=== PATIENT | female | born 1940 | race Caucasian/White ===

== ENCOUNTER → 2021-08-29 13:15 | Outpatient (BNVA) | payer MEDICARE, SELFPAY | PROVIDERS: PCP Physician Assistant Medical; Visit Provider Hospitalist | DX: I27.20 Pulmonary hypertension, unspecified (principal); J96.12 Chronic respiratory failure with hypercapnia; J96.11 Chronic respiratory failure with hypoxia; J98.4 Other disorders of lung; M79.89 Other specified soft tissue disorders; M41.9 Scoliosis, unspecified | CPT/HCPCS: 94618; 99202 ==

== ENCOUNTER 2021-09-24 09:48 | Outpatient (REF) | payer MEDICARE, SELFPAY ==
--- NOTE | 2021-09-24 | PFT_ITS ---
INDICATION: COPD. SPIROMETRY: FEV1 to FVC 79% with an FEV1 of 0.67 L, which is 47% of predicted, an FVC of 0.85 L, which is 44% of predicted. The maximum voluntary ventilation 31% predicted. LUNG VOLUMES: Total lung capacity 56% predicted. Expiratory reserve volume of 39% predicted. DIFFUSION CAPACITY: DLCO of 44% predicted. POST-TEST COMMENTS: The patient had an excellent effort, although she was unable to meet ATS standards for the DLCO maneuver. Therefore, need to consider. COMPARISONS: None. INTERPRETATION: No obstructive ventilatory defect. No significant response to bronchodilators noted. Actually, most of her measurements decrease during the post bronchodilator effort. The maximal voluntary ventilation is severely decreased at 31%. Therefore, need to consider underlying neuromuscular conditions or significant deconditioning. Her lung volumes demonstrated a restrictive ventilatory defect with a moderate restrictive lung disease. Again, interstitial lung conditions versus neuromuscular conditions should be considered. The patient also has a severe diffusion impairment that does correct to normal to 84% when correcting for the alveolar volume. Clinical correlation warranted. MD RUBY Gonzalez/MODAmrita / [id number]
== END 2021-09-24 09:49 | disposition home or self-care (01) ==
LOC: HO.RESP 09:48
PROVIDERS: Visit Provider Hospitalist
DX: J44.9 Chronic obstructive pulmonary disease, unspecified (principal)
CPT/HCPCS: 94060; 94727; 94729

== ENCOUNTER → 2021-09-27 14:08 | Outpatient (BNVA) | payer MEDICARE, SELFPAY | PROVIDERS: PCP Physician Assistant Medical; Visit Provider Hospitalist | DX: J96.11 Chronic respiratory failure with hypoxia (principal); J96.12 Chronic respiratory failure with hypercapnia; J98.4 Other disorders of lung; I27.20 Pulmonary hypertension, unspecified; M79.89 Other specified soft tissue disorders; M41.9 Scoliosis, unspecified | CPT/HCPCS: 99212 ==

== ENCOUNTER 2021-10-03 09:40 | Outpatient (REF) | payer MEDICARE, SELFPAY ==
[2021-10-03 11:30] LABS: D Dimer High Sensitivity 447 NG/ML
[2021-10-03 11:41] LABS: Anion Gap 11 (12-20); Blood Urea Nitrogen 20 mg/dL (9-16); Calcium 9.8 mg/dL (8.4-10.2); Carbon Dioxide 31 mmol/L (22-29); Chloride 101 mmol/L (96-108); Estimated Glomerular Filt Rate > 60; Glucose Random 97 mg/dL (60-115); Potassium 4.3 mmol/L (3.3-5.1); Sodium 139 mmol/L (135-145)
[2021-10-03 12:11] LABS: Erythrocyte Sedimentation Rate 5 MM/HR (0-20)
[2021-10-07 14:22] LABS: Anti Nuclear Antibody Screen NEGATIVE (NEGATIVE)
== END 2021-10-03 09:41 | disposition home or self-care (01) ==
LOC: HO.HMGCLDS 09:40
PROVIDERS: Visit Provider Hospitalist
DX: I27.20 Pulmonary hypertension, unspecified (principal)
CPT/HCPCS: 36415; 80048; 85379; 85652; 86038; 86039

== ENCOUNTER 2021-10-07 08:39 | Outpatient (REF) | payer MEDICARE, SELFPAY ==
--- NOTE | ~2021-10-07 | CT_ITS ---
EXAMINATION: CT ANGIOGRAM OF THE CHEST WITH AND WITHOUT CONTRAST (CT PULMONARY ANGIOGRAM FOR PE) CLINICAL INFORMATION: R79.89 - Other specified abnormal findings of blood chemistry. COMPARISON: None. TECHNIQUE: Prior to contrast administration, noncontrast localization images were obtained. Subsequently, multidetector volumetric imaging was performed from the thoracic inlet to below the diaphragms following the administration of 65 mL Omnipaque 350 intravenous contrast. No contrast reaction reported Sagittal, coronal, and MIP oblique sagittal reformatted images were obtained on the CT workstation, uploaded to PACS, and reviewed. This CT examination was performed using dose optimization techniques as appropriate, variously including the following: *Automated exposure control *Adjustment of mA and/or kV according to patient size (this includes techniques or standardized protocols for targeted exams where dose is matched to indication/reason for exam; i.e. extremities or head) *Use of iterative reconstruction technique Total exam dose-length product 94 mGy-cm. FINDINGS: QUALITY OF STUDY/CONTRAST BOLUS: Satisfactory. PULMONARY ARTERIES: No central or segmental pulmonary emboli. THORACIC AORTA: There is aneurysmal dilatation of ascending aorta measuring 4.5 x 4.4 cm on axial image 36/7. The heart size is normal. There is normal. There is no pericardial effusion. LUNG: No focal consolidation, nodules or masses. PLEURA: No pleural effusion or pneumothorax. MEDIASTINUM: The thyroid lobes are symmetrical and normal. The central trachea and the bronchi are widely patent. There is no pericardial effusion. The heart size is normal. No abnormal-sized mediastinal or hilar lymph nodes seen. No evidence of septal bowing or right heart strain. CHEST WALL/AXILLA: No axillary or internal mammary lymphadenopathy. OSSEOUS STRUCTURES: There is moderate dextroscoliosis of dorsal spine without any visible fracture or lytic process seen. UPPER ABDOMEN: Visualized liver, spleen, pancreas and bilateral adrenal glands are unremarkable. No reflux of contrast into the hepatic veins to suggest elevated right heart pressures. CT/CT angio chest PE protocol IMPRESSION: No evidence of PE. No evidence of aortic dissection. There is aneurysmal dilatation of ascending thoracic aorta. There is no gross lung abnormality seen seen except for minimal left basilar dependent atelectasis. VTE: negative
[2021-10-07] MEDS: iohexoL 350 MG/ML 100 ML INFUS..BTL IV (10:10)
== END 2021-10-07 08:40 | disposition home or self-care (01) ==
LOC: HO.CT 08:39
PROVIDERS: Visit Provider Hospitalist
DX: I27.20 Pulmonary hypertension, unspecified (principal); J96.11 Chronic respiratory failure with hypoxia; R79.89 Other specified abnormal findings of blood chemistry
CPT/HCPCS: 71275; Q9967

== ENCOUNTER → 2022-03-25 15:39 | Outpatient (BNVA) | payer MEDICARE, SELFPAY | PROVIDERS: PCP Physician Assistant Medical; Visit Provider Hospitalist | DX: J98.4 Other disorders of lung (principal); M41.9 Scoliosis, unspecified; I27.20 Pulmonary hypertension, unspecified; M79.89 Other specified soft tissue disorders; J96.11 Chronic respiratory failure with hypoxia; J96.12 Chronic respiratory failure with hypercapnia | CPT/HCPCS: 99212 ==

== ENCOUNTER 2022-06-30 10:42 | Emergency (ER) | payer MEDICARE, SELFPAY ==
--- NOTE | ~2022-06-30 | XR_ITS ---
EXAMINATION: XR CHEST CLINICAL INFORMATION: Shortness of breath COMPARISON: CT 10/07/2021 TECHNIQUE: Frontal view of the chest was obtained. FINDINGS: Scoliotic curvature of the spine. This distorts the configuration of the chest, similar to prior. The lungs are well expanded. No consolidation, edema, or effusion. No pneumothorax. The cardiomediastinal silhouette is unchanged. XR/XR chest 1V IMPRESSION: No acute pulmonary disease. Scoliotic curvature of the spine.
[2022-06-30 10:52] VITALS: BP 154/79; PULSE 57; RESP 16; TEMP 36.4; O2SAT 93; BMI 24.2
--- NOTE | 2022-06-30 10:58 | ECG_ITS ---
Test Reason : wheezing Blood Pressure : / mmHG Vent. Rate : 056 BPM Atrial Rate : 056 BPM P-R Int : 214 ms QRS Dur : 100 ms QT Int : 448 ms P-R-T Axes : 066 -01 057 degrees QTc Int : 432 ms Sinus bradycardia with 1st degree A-V block and PACs Possible Left atrial enlargement Left ventricular hypertrophy ( R in aVL , He product ) Abnormal ECG No previous ECGs available Referred By: Generic ED Physician Electronically Signed By:Nik Charlton
[2022-06-30 11:16] LABS: MANUAL DIFF FLAG NO
[2022-06-30 11:22] LABS: Basophils Percent Auto 0.2 % (0-2); Eosinophils Percent Auto 0.2 % (0-4); Hematocrit 41.9 % (37.0-47.0); Hemoglobin 13.6 g/dl (12.0-16.0); Imm Gran Abs Auto 0.01 X10*3/uL (0.00-0.03); Imm Gran Pct Auto 0.2 % (0.0-0.4); Lymphocytes Absolute Auto 0.8 X10*3/uL (1.2-4.9); Lymphocytes Percent Auto 14.1 % (20-40); Mean Corpuscular HGB Conc 32.5 g/dl (31.0-35.0); Mean Corpuscular Hemoglobin 31.1 pg (27.0-33.0); Mean Corpuscular Volume 95.7 fL (80.0-98.0); Mean Platelet Volume 10.3 fL (9.4-12.3); Monocytes Absolute Auto 0.4 X10*3/uL (0.1-1.2); Neutrophils Absolute Auto 4.2 x10*3/uL (2.0-8.3); Neutrophils Percent Auto 78.3 % (45-73); Platelet Count 164 X10*3/uL (160-400); Red Blood Count 4.38 X10*6/uL (4.20-5.50); Red Cell Distribution Width 14.6 % (11.0-16.0); White Blood Count 5.3 X10*3/uL (4.8-10.8)
[2022-06-30 11:32] LABS: Anion Gap 13 (12-20); Blood Urea Nitrogen 22 mg/dL (9-16); Carbon Dioxide 31 mmol/L (22-29); Chloride 99 mmol/L (96-108); Creatinine Clr Calc Pharmacy 45.1; Estimated Glomerular Filt Rate > 60; Glucose Random 93 mg/dL (60-115); Potassium 4.3 mmol/L (3.3-5.1); Sodium 139 mmol/L (135-145)
[2022-06-30 11:41] LABS: Troponin-I High Sensitivity < 3.5 ng/L (<3.5-17.0)
[2022-06-30 11:58] LABS: Influenza A PCR NEGATIVE (Negative); Influenza B PCR NEGATIVE (Negative); Resp Syncy Virus RNA Qual PCR NEGATIVE (Negative); SARS COV2 PCR INHOUSE NEGATIVE (Negative)
[2022-06-30 12:44] LABS: Alanine Aminotransferase 57 U/L (0-31); Albumin Level 4.1 g/dL (3.5-5.0); Alkaline Phosphatase 69 U/L (39-117); Aspartate Amino Transferase 47 U/L (5-31); Bilirubin Direct 0.2 mg/dL (0.0-0.5); Bilirubin Total 0.9 mg/dL (0.0-1.0); Magnesium 1.9 mg/dL (1.6-2.6); Total Protein 6.9 g/dL (6.5-8.0)
[2022-06-30 12:58] LABS: B Type Natriuretic Peptide 67 pg/mL (<100)
--- NOTE | 2022-06-30 13:41 | PC.NURSE ---
Pt. 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
[2022-06-30 13:42] VITALS: BP 149/76; PULSE 51; RESP 16; O2SAT 96
--- NOTE | 2022-06-30 14:08 | ED_ITS ---
HPI - General Adult General Chief complaint: Dyspnea Stated complaint: wheezing, chills, Time Seen by Provider: 06/30/22 13:36 Source: patient Mode of arrival: ambulatory Limitations: no limitations History of Present Illness HPI narrative: 82-year-old female with history of dementia on Aricept presents with sensations of shortness of breath, wheezing, nausea, dyspepsia. Symptoms started about 2-3 days ago. They started with a sensation of at subjective fever but her temperature at home was normal. The next day she developed chills but no rigors. Since then, her appetite has been slightly diminished. She has had some slight nausea but no vomiting. She also reports loose stools. She denies any chest pain or abdominal pain. She denies any cough or mucus production. There is no urinary frequency, urgency or dysuria. She has no known sick contacts. Also of note, patient has had increasing nighttime hallucinations and difficulty sleeping. She has been attempting to get into a neurologist to adj ust her medications but has been unable to do so. Related Data Home Medications Medication Instructions Recorded Confirmed albuterol sulfate 90 mcg/actuation 2 inh PO Q4H 08/29/21 breath activated powder inhaler (ProAir RespiClick) aspirin 81 mg tablet,delayed 81 mg PO DAILY 08/29/21 release cholecalciferol (vitamin D3) 25 25 mcg PO DAILY 08/29/21 mcg (1,000 unit) capsule donepezil 10 mg tablet 10 mg PO BEDTIME 08/29/21 fexofenadine 60 mg tablet (Amber 60 mg PO Q12H 08/29/21 Allergy) fluticasone propionate 220 2 puff PO BID 08/29/21 mcg/actuation HFA aerosol inhaler (Flovent HFA) furosemide 20 mg tablet 20 mg PO DAILY PRN 08/29/21 mecobalamin (vitamin B12) 1,000 1,000 mcg sublingual DAILY 08/29/21 mcg disintegrating tablet,sublingual melatonin 3 mg tablet 3 mg PO BEDTIME PRN 08/29/21 fluorouracil 5 % topical cream appl topical BID 03/25/22 losartan 50 mg tablet 50 mg PO DAILY 03/25/22 mirabegron 25 mg tablet,extended 25 mg PO DAILY 03/25/22 release 24 hr (Myrbetriq) Previous Rx's Medication Instructions Recorded haloperidol 1 mg tablet 1 mg PO BEDTIME #10 tabs 03/13/23 ondansetron 4 mg disintegrating 4 mg PO Q8H PRN nausea and 06/30/22 tablet vomiting #10 tabs Allergies Allergy/AdvReac Type Severity Reaction Status Date / Time amoxicillin Allergy Severe Hives Verified 03/25/22 15:48 Penicillins Allergy Severe Hives Verified 03/25/22 15:48 sulfamethoxazole Allergy Severe Blisters Verified 03/25/22 15:48 [From Bactrim] trimethoprim [From Bactrim] Allergy Severe Blisters Verified 03/25/22 15:48 Review of Systems Review of Systems: CONSTITUTIONAL: Denies weight loss, subjective fever and chills. HEENT: Denies changes in vision and hearing. RESPIRATORY: Positive SOB negative cough. CV: Denies palpitations no CP. GI: Denies abdominal pain, positive nausea diarrhea. : Denies dysuria and urinary frequency. MSK: Denies myalgia and joint pain. SKIN: Denies rash and pruritus. NEUROLOGICAL: Denies headache and syncope. PSYCHIATRIC: Denies recent changes in mood. Denies anxiety and depression. All other ROS are negative unless in HPI PMFSH Past Medical History Medical History Chronic hypercapnic respiratory failure Chronic hypoxemic respiratory failure Limb swelling Pulmonary hypertension Restrictive lung disease due to kyphoscoliosis Social History Social History Alcohol intake: never Patient Tobacco Use Status: Never used Tobacco Smoked in Last 30 Days: No Use of substances other than those prescribed or required for medical reasons: No Advance Directives: No Advance Directives Information Provided: Yes Physical Exam ED Vital Signs: Vital Signs - 24 hr 06/30/22 10:52 06/30/22 13:42 Temperature 97.5 F Pulse Rate 57 51 Respiratory Rate 16 16 Blood Pressure 154/79 H 149/76 H Pulse Oximetry 93 96 Oxygen Delivery Method Room Air Nasal Cannula Oxygen Flow Rate 2 BMI result Body Mass Index 24.2 GEN: Well developed, no acute distress, alert, oriented HEENT: Normocephalic, atraumatic, normal external ears, nose appears normal, no oropharyngeal edema or exudates Eyes: Normal to appearance Neck: Supple, no lymphadenopathy Respiratory: Talks in complete sentences, no respiratory distress, clear to auscultation bilaterally Cardiovascular: Regular rate and rhythm, no murmurs rubs or gallops Abdomen: Soft, nontender, nondistended, no guarding, no rebound Back: No CVA tenderness Extremities: No clubbing cyanosis positive left greater than right edema Neurologic: No focal neurologic deficits, cranial nerves 2-12 intact, strength is 5/5 bilaterally, gait normal Skin: No rash Course Course Course Narrative: 82-year-old female presents with viral related symptoms. She has had no fevers or chills. She is on oxygen 2 L nasal cannula home. She reports some shortness of breath and wheezing, diarrhea, nausea. Examination was unremarkable with exception of 2+ by pedal edema slightly left worse on the left than the right. Her chest x-ray revealed no acute cardiopulmonary disease. Laboratory analysis was stable to normal. There is neck no evidence of COVID or other viral illness based on our serology. At this time, patient can be discharged with antiemetics as an as-needed basis. I suspect she has a viral illness. Doubt CHF, cardiac etiology, PE, DVT, dehydration. Daughter was present with she lives at this time. I have also decided to prescribe the patient Haldol 1 mg q.h.s. p.r.n. for sleep and hallucinations until she is able to follow up with her primary care provider or a neurologist. Medical Decision Making Medical Decision Making MDM Narrative: 82-year-old female presents with viral related symptoms. She has had no fevers or chills. She is on oxygen 2 L nasal cannula home. She reports some shortness of breath and wheezing, diarrhea, nausea. Examination was unremarkable with exception of 2+ by pedal edema slightly left worse on the left than the right. Her chest x-ray revealed no acute cardiopulmonary disease. Laboratory analysis was stable to normal. There is neck no evidence of COVID or other viral illness based on our serology. At this time, patient can be discharged with antiemetics as an as-needed basis. I suspect she has a viral illness. Doubt CHF, cardiac etiology, PE, DVT, dehydration. Daughter was present with she lives at this time. I have also decided to prescribe the patient Haldol 1 mg q.h.s. p.r.n. for sleep and hallucinations until she is able to follow up with her primary care provider or a neurologist. Differential Diagnosis Differential Diagnoses: The differential diagnosis associated with the presentation includes (Viral illness, COVID, flu, CHF, electrolyte abnormality, anemia) Admission/Observation Consideration of admission/observation: Escalation of care including admission/observation considered Lab Data MDM Lab Attestation statement: I reviewed the patient's lab results. 06/30/22 11:11 06/30/22 11:11 Labs: Lab Results 06/30/22 06/30/22 06/30/22 Range/Units 11:11 11:11 11:11 WBC 5.3 (4.8-10.8) X10*3/uL RBC 4.38 (4.20-5.50) X10*6/uL Hgb 13.6 (12.0-16.0) g/dl Hct 41.9 (37.0-47.0) % MCV 95.7 (80.0-98.0) fL MCH 31.1 (27.0-33.0) pg MCHC 32.5 (31.0-35.0) g/dl RDW 14.6 (11.0-16.0) % Plt Count 164 (160-400) X10*3/uL MPV 10.3 (9.4-12.3) fL Immature Gran % (Auto) 0.2 (0.0-0.4) % Neut % (Auto) 78.3 H (45-73) % Lymph % (Auto) 14.1 L (20-40) % Steele % (Auto) 7.0 (2-11) % Eos % (Auto) 0.2 (0-4) % Baso % (Auto) 0.2 (0-2) % Lymph # (Auto) 0.8 L (1.2-4.9) X10*3/uL Steele # (Auto) 0.4 (0.1-1.2) X10*3/uL Eos # (Auto) 0.0 (0.0-0.4) X10*3/uL Baso # (Auto) 0.0 (0.0-0.2) X10*3/uL Abs Immat Gran (auto) 0.01 (0.00-0.03) X10*3/uL Absolute Neuts (auto) 4.2 (2.0-8.3) x10*3/uL Absolute Nucleated RBC 0.000 (0.0-0.012) X10*3/uL Nucleated RBC % (auto) 0.0 (0.0-0.2) /100WBC Sodium 139 (135-145) mmol/L Potassium 4.3 (3.3-5.1) mmol/L Chloride 99 (96-108) mmol/L Carbon Dioxide 31 H (22-29) mmol/L Anion Gap 13 (12-20) BUN 22 H (9-16) mg/dL Creatinine 0.71 (0.5-1.4) mg/dL Estim Creat Clear Calc 45.1 Estimated GFR > 60 Random Glucose 93 (60-115) mg/dL Calcium 10.0 (8.4-10.2) mg/dL Magnesium 1.9 (1.6-2.6) mg/dL Total Bilirubin 0.9 (0.0-1.0) mg/dL Direct Bilirubin 0.2 (0.0-0.5) mg/dL AST 47 H (5-31) U/L ALT 57 H (0-31) U/L Alkaline Phosphatase 69 (39-117) U/L Troponin I High Sens < 3.5 (<3.5-17.0) ng/L B-Natriuretic Peptide (<100) pg/mL Total Protein 6.9 (6.5-8.0) g/dL Albumin 4.1 (3.5-5.0) g/dL Influenza Type A (PCR) (Negative) Influenza Type B (PCR) (Negative) RSV RNA Qual (PCR) (Negative) SARS-CoV-2 RNA (RT-PCR) (Negative) 06/30/22 06/30/22 Range/Units 11:11 11:11 WBC (4.8-10.8) X10*3/uL RBC (4.20-5.50) X10*6/uL Hgb (12.0-16.0) g/dl Hct (37.0-47.0) % MCV (80.0-98.0) fL MCH (27.0-33.0) pg MCHC (31.0-35.0) g/dl RDW (11.0-16.0) % Plt Count (160-400) X10*3/uL MPV (9.4-12.3) fL Immature Gran % (Auto) (0.0-0.4) % Neut % (Auto) (45-73) % Lymph % (Auto) (20-40) % Steele % (Auto) (2-11) % Eos % (Auto) (0-4) % Baso % (Auto) (0-2) % Lymph # (Auto) (1.2-4.9) X10*3/uL Steele # (Auto) (0.1-1.2) X10*3/uL Eos # (Auto) (0.0-0.4) X10*3/uL Baso # (Auto) (0.0-0.2) X10*3/uL Abs Immat Gran (auto) (0.00-0.03) X10*3/uL Absolute Neuts (auto) (2.0-8.3) x10*3/uL Absolute Nucleated RBC (0.0-0.012) X10*3/uL Nucleated RBC % (auto) (0.0-0.2) /100WBC Sodium (135-145) mmol/L Potassium (3.3-5.1) mmol/L Chloride (96-108) mmol/L Carbon Dioxide (22-29) mmol/L Anion Gap (12-20) BUN (9-16) mg/dL Creatinine (0.5-1.4) mg/dL Estim Creat Clear Calc Estimated GFR Random Glucose (60-115) mg/dL Calcium (8.4-10.2) mg/dL Magnesium (1.6-2.6) mg/dL Total Bilirubin (0.0-1.0) mg/dL Direct Bilirubin (0.0-0.5) mg/dL AST (5-31) U/L ALT (0-31) U/L Alkaline Phosphatase (39-117) U/L Troponin I High Sens (<3.5-17.0) ng/L B-Natriuretic Peptide 67 (<100) pg/mL Total Protein (6.5-8.0) g/dL Albumin (3.5-5.0) g/dL Influenza Type A (PCR) NEGATIVE (Negative) Influenza Type B (PCR) NEGATIVE (Negative) RSV RNA Qual (PCR) NEGATIVE (Negative) SARS-CoV-2 RNA (RT-PCR) NEGATIVE (Negative) Independent Interpretation I performed an independent interpretation of an: EKG (Sinus bradycardia heart rate 56, sinus arrhythmia, first-degree AV block, nonspecific T-wave changes, no acute ST elevations or depressions, possible LVH) and Plain X-Ray (Chest x-ray no acute cardiopulmonary disease) Radiology Impression Discussion of test interpretation with radiology: I have reviewed the radiologist's reading. (IMPRESSION: No acute pulmonary disease. Scoliotic curvature of the spine. Dictated By:Mikhail Britton MDSigned By:<Electronically signed by Mikhail Britton MD in OV>06/30/22 [id number]) Independent Historian Clinical information obtained from an independent historian. History obtained from or confirmed by: Other (Daughter) Prescription Management I considered prescription management with: Antibiotic Chronic Conditions Patient?s care impacted by: Other (Dementia) Discharge Plan Discharge Clinical Impression: Limb swelling, Nausea, Hallucinations due to late onset dementia Patient Disposition: Home, Self-Care Instructions: Dementia (ED), Acute Nausea and Vomiting (ED), Edema (ED), Hallucinations (ED) Prescriptions: New haloperidol 1 mg tablet 1 mg PO BEDTIME Qty: 10 0RF ondansetron 4 mg tablet,disintegrating 4 mg PO Q8H PRN (Reason: nausea and vomiting) Qty: 10 0RF No Action Flovent HFA 220 mcg/actuation HFA aerosol inhaler 2 puff PO BID furosemide 20 mg tablet 20 mg PO DAILY PRN ProAir RespiClick 90 mcg/actuation aerosol powdr breath activated 2 inh PO Q4H cholecalciferol (vitamin D3) 25 mcg (1,000 unit) capsule 25 mcg PO DAILY mecobalamin (vitamin B12) 1,000 mcg tablet,disintegrating 1,000 mcg sublingual DAILY Rx Instructions: place tablet under tongue and allow to dissolve for at least30 secs before swallowing melatonin 3 mg tablet 3 mg PO BEDTIME PRN aspirin 81 mg tablet,delayed release (DR/EC) 81 mg PO DAILY fexofenadine [Amber Allergy] 60 mg tablet 60 mg PO Q12H donepezil 10 mg tablet 10 mg PO BEDTIME Myrbetriq 25 mg tablet extended release 24 hr 25 mg PO DAILY losartan 50 mg tablet 50 mg PO DAILY fluorouracil 5 % cream topical BID Referrals: Heidy Banks PA [Primary Care Provider] - 1 week
[2022-06-30 14:36] VITALS: BP 172/73; PULSE 50; RESP 16; O2SAT 91
[2022-06-30] MEDS: Ondansetron ODT 4 MG TAB.RAPDIS TRANSLINGU (14:55)
== END 2022-06-30 15:01 | disposition home or self-care (01) ==
PROVIDERS: Physician Assistant Medical; Emergency Provider Emergency Medicine; PCP Physician Assistant Medical
DX: R60.0 Localized edema (principal); R06.02 Shortness of breath; R44.3 Hallucinations, unspecified; R94.31 Abnormal electrocardiogram [ECG] [EKG]; R06.2 Wheezing; F03.90 Unspecified dementia, unspecified severity, without behavioral disturbance, psychotic disturbance, mood disturbance, and anxiety; Z20.822 Contact with and (suspected) exposure to COVID-19; Z20.828 Contact with and (suspected) exposure to other viral communicable diseases; Z79.899 Other long term (current) drug therapy
CPT/HCPCS: 0241U; 36415; 71045; 80048; 80076; 83735; 83880; 84484; 85025; 93005; 99283; 99284